=== PATIENT | male | born 1955 | race Caucasian/White ===

== ENCOUNTER → 2021-09-08 | Day surgery (SDC) | payer MEDICARE, OTHER ==
[~2021-09-08] VITALS: Ht 182.9 cm; Wt 90.7 kg
[~2021-09-08] MED LIST: ASCORBIC ACID500 MG PO; ASPIRIN EC81 MG PO; B COMPLEX1 EACH PO; VITAMIN D3125 MC1 PO
== END | disposition home or self-care (01) ==
LOC: FAS 02-15 11:45
DX: Z12.11 Encounter for screening for malignant neoplasm of colon (principal); M19.90 Unspecified osteoarthritis, unspecified site
CPT/HCPCS: J2704; J7120